=== PATIENT | female | born 1980 | race Caucasian/White ===

== ENCOUNTER 2016-02-19 07:03 | Day surgery (SDC) | payer OTHER ==
[~2016-02-19] VITALS: Ht 172.7 cm; Wt 79.4 kg
[~2016-02-19 07:03] MED LIST: ACID REFLUX MEDS; ADVAIR; ADVAIR 100-501 EACH IH; ADVAIR 100/501 DISK IH; ALAVERT10 MG PO; ALBUTEROL17 GM IH; AMBIEN; AMBIEN5 MG PO; ANAPROX DS550 M1 PO; ANTIVERT25 MG PO; B COMPLETE1 EACH PO; BUSPIRONE HCL15 MG PO; CALCIPOTRIENE60 G1 TP; CHANTIX1 EACH PO; CLARITIN10 MG PO; CORTIZONE-10 PL57 GM TP; CREON 241 CAPSULE PO; CYCLOBENZAPRINE10 MG PO; DICLOFENAC SODI75 MG PO; DICYCLOMINE HCL20 MG PO; ESCITALOPRAM OX20 MG PO; FAMOTIDINE20 M1 NG; FAMOTIDINE40 MG PO; FISH OIL CONC1 EACH PO; FLEXERIL10 MG PO; FLONASE16 G1 BOTH NARES; FLONASE16 GM NS; GABAPENTIN300 MG PO; GRALISE300 MG PO; HYDROCODON-ACE1 EAC7 PO; HYDROXYZINE HCL10 MG PO; INDOCIN25 MG PO; KLOR-CON 1010 MEQ PO; LAMICTAL100 MG PO; LAMICTAL25 MG PO; LEXAPRO20 MG PO; LISINOPRIL5 MG PO; LOESTRIN 1/21 TABLET PO; LORATADINE10 M2 PO; MACROBID100 MG PO; MELOXICAM15 MG PO; MORPHINE SULFAT15 M1 PO; MORPHINE SULFAT15 MG PO; MORPHINE SULFAT30 M2 PO; MOTRIN600 MG PO; MOTRIN800 MG PO; Motrin PO; NAPROSYN500 MG PO; NEURONTIN400 MG PO; NORCO 7.5/321 TABLET PO; NORPLANT; PAROXETINE HCL40 MG PO; PAXIL; PAXIL40 MG PO; PEPCID40 MG PO; PERCOCET 5/31 TABLET PO; POTASSIUM CHLO10 ME3 PO; PREDNISONE20 MG PO; PREDNISONE50 MG PO; PRENATAL1 EACH PO; PROAIR HFA8.5 GM IH; RANITIDINE HCL300 M1 PO; SANCTURA20 MG PO; SIMVASTATIN20 M1 PO; STRATTERA; STRATTERA40 MG PO; TOPAMAX25 MG PO; TOPIRAMATE25 MG PO; TRAZODONE HCL50 MG PO; TROSPIUM CHLORI20 MG PO; ULTRAM50 MG PO; VITAMIN D-32000 UNI2 PO; VITAMIN D32000 UNI1 PO; VOLTAREN50 MG PO; ZOFRAN ODT4 MG PO; ZYRTEC10 M2 PO; [UNRECOGNIZED DRUG - OTHER]
[2016-02-19] MEDS ORDERED: HYDROCODON-ACE1 EAC7 PO (07:35)
== END 2016-02-19 10:47 | disposition home or self-care (01) ==
LOC: PAIN 07:03 → SDC 08:00 → PAIN 10:47
PROC: 3E0S33Z Introduction of Anti-inflammatory into Epidural Space, Percutaneous Approach (ICD-10-PCS; principal; 2016-02-19)
DX: M54.16 Radiculopathy, lumbar region (principal); M47.896 Other spondylosis, lumbar region; M51.36 Other intervertebral disc degeneration, lumbar region; I10 Essential (primary) hypertension; F41.1 Generalized anxiety disorder; E78.5 Hyperlipidemia, unspecified; J45.909 Unspecified asthma, uncomplicated; K21.9 Gastro-esophageal reflux disease without esophagitis
CPT/HCPCS: J1030; J2250; J3010

== ENCOUNTER 2016-03-18 07:24 | Day surgery (SDC) | payer OTHER | END 2016-03-18 09:10 | disposition home or self-care (01) | LOC: PAIN 07:24 → SDC 07:45 → PAIN 09:10 | PROC: 3E0S33Z Introduction of Anti-inflammatory into Epidural Space, Percutaneous Approach (ICD-10-PCS; principal; 2016-03-18) | DX: M54.16 Radiculopathy, lumbar region (principal); M47.896 Other spondylosis, lumbar region; M51.36 Other intervertebral disc degeneration, lumbar region; F41.1 Generalized anxiety disorder; I10 Essential (primary) hypertension; E78.5 Hyperlipidemia, unspecified; F90.9 Attention-deficit hyperactivity disorder, unspecified type; K76.0 Fatty (change of) liver, not elsewhere classified | CPT/HCPCS: J1030; J2250; J3010 ==

== ENCOUNTER → 2016-05-26 | Outpatient (CLI) | payer OTHER | END | disposition home or self-care (01) | LOC: CDC 09:56 | DX: I49.9 Cardiac arrhythmia, unspecified (principal); R94.31 Abnormal electrocardiogram [ECG] [EKG]; M54.9 Dorsalgia, unspecified | CPT/HCPCS: 93000 ==

== ENCOUNTER 2016-06-01 09:45 | Day surgery (SDC) | payer OTHER ==
[~2016-06-01] VITALS: Ht 172.7 cm; Wt 79.4 kg
[2016-06-01 10:31] VITALS: BP 126/75
[2016-06-01 15:48] VITALS: BP 149/70
== END 2016-06-02 16:45 | disposition home or self-care (01) ==
LOC: SDC 09:45 → 2SOUTH 13:55
DX: M51.16 Intervertebral disc disorders with radiculopathy, lumbar region (principal); I10 Essential (primary) hypertension; F41.9 Anxiety disorder, unspecified; G47.30 Sleep apnea, unspecified; K21.9 Gastro-esophageal reflux disease without esophagitis; I49.9 Cardiac arrhythmia, unspecified; Z87.828 Personal history of other (healed) physical injury and trauma; F17.210 Nicotine dependence, cigarettes, uncomplicated
CPT/HCPCS: 72020; 76000; G0378; J0330; J0690; J1100; J1170; J1885; J2250; J2405; J2710; J3010

== ENCOUNTER 2016-06-03 13:44 | Emergency (ER) | payer OTHER ==
[~2016-06-03] VITALS: Ht 172.7 cm; Wt 75.0 kg
[2016-06-03 14:37] LABS: HEMATOCRIT 38.7 % (36.0-46.0); MCH 30.3 PG (29.0-34.0); MCHC 33.9 G/DL (30.0-36.0); MCV 89.6 FL (83-99); PLATELET COUNT 205 K/uL (156-360); RBC DIS.WIDTH-CV 12.9 % (11.8-14.6); RBC DIS.WIDTH-SD 42.6 % (39-53); RED BLOOD COUNT 4.32 M/uL (3.80-5.20); WHITE BLOOD COUNT 10.6 K/uL (4.1-10.2)
[2016-06-03 14:43] LABS: CHLORIDE 108 mEq/L (99-109); POTASSIUM 3.1 mEq/L (3.7-5.4); SODIUM 141 mEq/L (136-147)
[2016-06-03 14:44] LABS: GLUCOSE 85 mg/dL (70-99)
[2016-06-03 14:46] LABS: ANION GAP 11 MEQ/L (2-14)
[2016-06-03 14:48] LABS: GFR ESTIMATE (CALCULATED) > 59 mL/min/
[2016-06-03 14:49] LABS: UREA NITROGEN (BUN) 7 mg/dL (9-23)
[2016-06-03 15:20] LABS: ADD MIUA? NO; BILIRUBIN NEGATIVE; BLOOD NEGATIVE; COLOR COLORLESS ((YELLOW)); GLUCOSE (STRIP) NEGATIVE; KETONES NEGATIVE; LEUKOCYTES NEGATIVE; NITRITE NEGATIVE; PROTEIN (STRIP) NEGATIVE; SPECIFIC GRAVITY 1.002 (1.000-1.030); UCUL ADDED? NO; UROBILINOGEN 0.2 MG/DL (0.2-1.0)
[2016-06-03 17:05] VITALS: BP 110/54
== END 2016-06-03 17:10 | disposition home or self-care (01) ==
LOC: EME 13:44
PROVIDERS: Emergency Medicine
DX: S30.0XXA Contusion of lower back and pelvis, initial encounter (principal); E87.6 Hypokalemia; D72.829 Elevated white blood cell count, unspecified; W50.1XXA Accidental kick by another person, initial encounter; Z98.890 Other specified postprocedural states; E78.5 Hyperlipidemia, unspecified; K21.9 Gastro-esophageal reflux disease without esophagitis; R56.9 Unspecified convulsions; F17.200 Nicotine dependence, unspecified, uncomplicated
CPT/HCPCS: 72131; 80048; 81003; 85027; 99281; 99285; J2270; J2405

== ENCOUNTER 2016-07-28 10:59 | Emergency (ER) | payer OTHER ==
[~2016-07-28] VITALS: Ht 172.7 cm; Wt 76.6 kg
[2016-07-28 12:24] LABS: HEMATOCRIT 45.5 % (36.0-46.0); MCH 29.4 PG (29.0-34.0); MCHC 32.7 G/DL (30.0-36.0); MCV 89.9 FL (83-99); RBC DIS.WIDTH-CV 12.2 % (11.8-14.6); RBC DIS.WIDTH-SD 40.3 % (39-53); RED BLOOD COUNT 5.06 M/uL (3.80-5.20); WHITE BLOOD COUNT 7.2 K/uL (4.1-10.2)
[2016-07-28 12:35] LABS: CHLORIDE 107 mEq/L (99-109); POTASSIUM 3.4 mEq/L (3.7-5.4); SODIUM 143 mEq/L (136-147)
[2016-07-28 12:37] LABS: GLUCOSE 78 mg/dL (70-99)
[2016-07-28 12:38] LABS: ANION GAP 10 MEQ/L (2-14)
[2016-07-28 12:39] LABS: TOTAL BILIRUBIN 0.4 mg/dL (0.0-1.0)
[2016-07-28 12:40] LABS: ALKALINE PHOSPHATASE 61 IU/L (3-129)
[2016-07-28 12:41] LABS: GFR ESTIMATE (CALCULATED) > 59 mL/min/
[2016-07-28 12:42] LABS: UREA NITROGEN (BUN) 4 mg/dL (9-23)
[2016-07-28 12:49] LABS: QUANTITATIVE HCG < 4.0 MIU/ML
[2016-07-28 13:14] LABS: ADD MIUA? YES; BILIRUBIN NEGATIVE; BLOOD NEGATIVE; COLOR STRAW ((YELLOW)); GLUCOSE (STRIP) NEGATIVE; KETONES NEGATIVE; LEUKOCYTES NEGATIVE; NITRITE NEGATIVE; PROTEIN (STRIP) NEGATIVE; SPECIFIC GRAVITY 1.003 (1.000-1.030); UROBILINOGEN 0.2 MG/DL (0.2-1.0)
[2016-07-28 13:18] LABS: BACTERIA RARE /HPF; EPITHELIAL CELLS 4+ /HPF; MUCUS TRACE /LPF; RED BLOOD CELLS 0-5 /HPF (0-5); UCUL ADDED? NO; WHITE BLOOD CELLS 0-5 /HPF (0-5)
[2016-07-28 13:21] LABS: MEAN PLAT.VOLUME 11.5 uM^3 (9.5-12.4); PLATELET COUNT 208 K/uL (156-360)
[2016-07-28 13:30] LABS: LIPASE 7 U/L (1.0-51.0)
[2016-07-28 15:55] VITALS: BP 125/71
== END 2016-07-28 15:57 | disposition home or self-care (01) ==
LOC: EME 10:59
DX: R10.9 Unspecified abdominal pain (principal); R19.7 Diarrhea, unspecified; Z90.49 Acquired absence of other specified parts of digestive tract; I10 Essential (primary) hypertension; F17.200 Nicotine dependence, unspecified, uncomplicated
CPT/HCPCS: 74177; 80053; 81003; 83690; 84702; 85027; 99281; 99284; J1885; J7030

== ENCOUNTER 2016-09-26 03:09 | Emergency (ER) | payer OTHER ==
[~2016-09-26] VITALS: Ht 172.7 cm; Wt 81.0 kg
[2016-09-26 03:16] VITALS: BP 129/87
== END 2016-09-26 04:22 | disposition home or self-care (01) ==
LOC: EME 03:09
DX: S93.401A Sprain of unspecified ligament of right ankle, initial encounter (principal); W18.30XA Fall on same level, unspecified, initial encounter; Z88.2 Allergy status to sulfonamides
CPT/HCPCS: 73610; 99281; 99282

== ENCOUNTER 2016-10-09 02:26 | Emergency (ER) | payer OTHER ==
[~2016-10-09] VITALS: Ht 167.6 cm; Wt 76.6 kg
[2016-10-09 03:07] LABS: EOSINOPHIL (%) 2.7 % (0-5); EOSINOPHIL COUNT 0.3 K/uL (0-0.3); IMMATURE GRANULOCYTE (%) 0.3 % (0.0-0.7); INSTRUMENT ABS NEUTROPHIL CT 6.1 K/uL; LYMPHOCYTE COUNT 3.4 K/uL (1.0-2.8); MCH 29.4 PG (29.0-34.0); MCHC 33.4 G/DL (30.0-36.0); MEAN PLAT.VOLUME 11.3 uM^3 (9.5-12.4); MONOCYTE (%) 8.2 % (3-12); MONOCYTE COUNT 0.9 K/uL (0-0.8); NEUTROPHIL (%) 56.8 % (45-76); NEUTROPHIL COUNT 6.1 K/uL (1.8-6.4); PLATELET COUNT 250 K/uL (156-360); RBC DIS.WIDTH-CV 13.1 % (11.8-14.6); RBC DIS.WIDTH-SD 42.4 % (39-53); RED BLOOD COUNT 4.66 M/uL (3.80-5.20); WHITE BLOOD COUNT 10.7 K/uL (4.1-10.2)
[2016-10-09 03:17] LABS: CHLORIDE 107 mEq/L (99-109); POTASSIUM 3.2 mEq/L (3.7-5.4); SODIUM 139 mEq/L (136-147)
[2016-10-09 03:19] LABS: GLUCOSE 96 mg/dL (70-99)
[2016-10-09 03:20] LABS: ANION GAP 13 MEQ/L (2-14)
[2016-10-09 03:22] LABS: SERUM ETHYL ALCOHOL 83 mg/dL
[2016-10-09 03:23] LABS: GFR ESTIMATE (CALCULATED) > 59 mL/min/
[2016-10-09 03:24] LABS: UREA NITROGEN (BUN) 4 mg/dL (9-23)
[2016-10-09 03:31] LABS: QUANTITATIVE HCG < 4.0 MIU/ML
[2016-10-09 09:39] VITALS: BP 110/58
== END 2016-10-09 10:18 | disposition home or self-care (01) ==
LOC: EME → EDBD 02:26 → EME 02:26
PROVIDERS: Emergency Medicine
DX: F10.129 Alcohol abuse with intoxication, unspecified (principal); F32.9 Major depressive disorder, single episode, unspecified; S40.212A Abrasion of left shoulder, initial encounter; S40.211A Abrasion of right shoulder, initial encounter; X78.8XXA Intentional self-harm by other sharp object, initial encounter; F43.10 Post-traumatic stress disorder, unspecified; F60.3 Borderline personality disorder; R41.83 Borderline intellectual functioning; Z86.73 Personal history of transient ischemic attack (TIA), and cerebral infarction without residual deficits; K21.9 Gastro-esophageal reflux disease without esophagitis; E78.5 Hyperlipidemia, unspecified; F17.200 Nicotine dependence, unspecified, uncomplicated; Z78.1 Physical restraint status
CPT/HCPCS: 80048; 84702; 85025; 90837; 99281; 99284; G0480; J1630; J2250

== ENCOUNTER 2016-11-20 20:24 | Emergency (ER) | payer OTHER ==
[~2016-11-20] VITALS: Ht 172.7 cm; Wt 75.0 kg
[2016-11-20] MEDS ORDERED: MEDROL DOSEPAK4 MG PO (22:17)
[2016-11-20] MEDS ORDERED: NAPROSYN500 MG PO (22:17)
[2016-11-20] MEDS ORDERED: FLEXERIL10 MG PO (22:17)
[2016-11-20 22:27] VITALS: BP 135/68
[2016-11-21] MEDS ORDERED: ULTRAM50 MG PO (21:31)
== END 2016-11-20 22:27 | disposition home or self-care (01) ==
LOC: RME 20:24 → EME 20:24 → RME 22:27
DX: M54.5 Low back pain (principal); M25.532 Pain in left wrist; W18.2XXA Fall in (into) shower or empty bathtub, initial encounter; Y93.E1 Activity, personal bathing and showering; Y92.002 Bathroom of unspecified non-institutional (private) residence as the place of occurrence of the external cause; M51.36 Other intervertebral disc degeneration, lumbar region; I10 Essential (primary) hypertension; F17.200 Nicotine dependence, unspecified, uncomplicated
CPT/HCPCS: 72100; 73110; 99281; 99283; J1100

== ENCOUNTER 2016-11-21 20:55 | Emergency (ER) | payer OTHER ==
[~2016-11-21] VITALS: Ht 172.7 cm; Wt 76.7 kg
[~2016-11-21 20:55] MED LIST changes: +MEDROL DOSEPAK4 MG PO
[2016-11-21] MEDS ORDERED: ULTRAM50 MG PO (21:31)
[2016-11-21 21:51] VITALS: BP 135/81
== END 2016-11-21 21:52 | disposition home or self-care (01) ==
LOC: EME 20:55
DX: M54.9 Dorsalgia, unspecified (principal); M54.30 Sciatica, unspecified side; K21.9 Gastro-esophageal reflux disease without esophagitis; E78.5 Hyperlipidemia, unspecified; R56.9 Unspecified convulsions; G43.909 Migraine, unspecified, not intractable, without status migrainosus; Z86.73 Personal history of transient ischemic attack (TIA), and cerebral infarction without residual deficits; F17.200 Nicotine dependence, unspecified, uncomplicated
CPT/HCPCS: 99281; 99283

== ENCOUNTER 2016-12-30 22:59 | Emergency (ER) | payer OTHER ==
[~2016-12-30] VITALS: Ht 172.7 cm; Wt 75.1 kg
[2016-12-30 23:47] LABS: EOSINOPHIL (%) 2.1 % (0-5); EOSINOPHIL COUNT 0.3 K/uL (0-0.3); HEMATOCRIT 38.8 % (36.0-46.0); IMMATURE GRANULOCYTE (%) 0.3 % (0.0-0.7); INSTRUMENT ABS NEUTROPHIL CT 6.6 K/uL; LYMPHOCYTE COUNT 3.8 K/uL (1.0-2.8); MCH 29.4 PG (29.0-34.0); MCHC 33.5 G/DL (30.0-36.0); MCV 87.8 FL (83-99); MEAN PLAT.VOLUME 10.9 uM^3 (9.5-12.4); MONOCYTE (%) 7.9 % (3-12); MONOCYTE COUNT 0.9 K/uL (0-0.8); NEUTROPHIL (%) 56.8 % (45-76); NEUTROPHIL COUNT 6.6 K/uL (1.8-6.4); PLATELET COUNT 245 K/uL (156-360); RBC DIS.WIDTH-CV 12.2 % (11.8-14.6); RBC DIS.WIDTH-SD 39.6 % (39-53); RED BLOOD COUNT 4.42 M/uL (3.80-5.20); WHITE BLOOD COUNT 11.7 K/uL (4.1-10.2)
[2016-12-30 23:52] LABS: CHLORIDE 106 mEq/L (99-109); POTASSIUM 2.9 mEq/L (3.7-5.4); SODIUM 136 mEq/L (136-147)
[2016-12-30 23:54] LABS: GLUCOSE 104 mg/dL (70-99)
[2016-12-30 23:55] LABS: ANION GAP 7 MEQ/L (2-14)
[2016-12-30 23:56] LABS: TOTAL BILIRUBIN 0.3 mg/dL (0.0-1.0)
[2016-12-30 23:57] LABS: SERUM ETHYL ALCOHOL < 10 mg/dL
[2016-12-30 23:58] LABS: ALKALINE PHOSPHATASE 58 IU/L (3-129); GFR ESTIMATE (CALCULATED) > 59 mL/min/
[2016-12-31] LABS: UREA NITROGEN (BUN) 6 mg/dL (9-23)
[2016-12-31 00:01] LABS: SALICYLATE < 5.0 MG/DL (15-30)
[2016-12-31 00:08] LABS: QUANTITATIVE HCG < 4.0 MIU/ML
[2016-12-31 07:54] LABS: ADD MIUA? YES; BILIRUBIN NEGATIVE; BLOOD NEGATIVE; COLOR YELLOW ((YELLOW)); GLUCOSE (STRIP) NEGATIVE; KETONES NEGATIVE; LEUKOCYTES MODERATE; NITRITE NEGATIVE; PROTEIN (STRIP) 30; SPECIFIC GRAVITY 1.012 (1.000-1.030); UROBILINOGEN 0.2 MG/DL (0.2-1.0)
[2016-12-31 08:02] LABS: BACTERIA 1+ /HPF; EPITHELIAL CELLS 4+ /HPF; MUCUS 3+ /LPF; RED BLOOD CELLS 15-20 /HPF (0-5); UCUL ADDED? YES; WHITE BLOOD CELLS 20-30 /HPF (0-5)
[2016-12-31 08:13] LABS: ADD MEDTOX COMMENT Y; AMPHETAMINE NEGATIVE (500 ng/mL); BARBITURATES NEGATIVE (200 ng/mL); BENZODIAZEPINES NEGATIVE (150 ng/mL); COCAINE NEGATIVE (150 ng/mL); INTERNAL CONTROLS VALID? YES; METHADONE NEGATIVE (200 ng/mL); METHAMPHETAMINE NEGATIVE (500 ng/mL); OPIATES (MORPHINE) NEGATIVE (100 ng/mL); OXYCODONE NEGATIVE (100 ng/mL); PHENCYCLIDINE NEGATIVE (25 ng/mL); PROPOXYPHENE NEGATIVE (300 ng/mL); THC CANNABINOIDS PRESUMPTIVE POSITIVE (50 ng/mL); TRICYCLIC ANTIDEPRESSANTS NEGATIVE (300 ng/mL)
[2016-12-31 08:31] VITALS: BP 132/68
== END 2016-12-31 08:27 | disposition home or self-care (01) ==
LOC: EME 22:59
PROVIDERS: Emergency Medicine
DX: F32.9 Major depressive disorder, single episode, unspecified (principal); S40.212A Abrasion of left shoulder, initial encounter; S40.211A Abrasion of right shoulder, initial encounter; E87.6 Hypokalemia; F43.10 Post-traumatic stress disorder, unspecified; X78.8XXA Intentional self-harm by other sharp object, initial encounter; Z04.6 Encounter for general psychiatric examination, requested by authority; T43.506A Underdosing of unspecified antipsychotics and neuroleptics, initial encounter; Z91.14 Patient's other noncompliance with medication regimen; E78.5 Hyperlipidemia, unspecified; R56.9 Unspecified convulsions; K21.9 Gastro-esophageal reflux disease without esophagitis; Z86.73 Personal history of transient ischemic attack (TIA), and cerebral infarction without residual deficits; F17.200 Nicotine dependence, unspecified, uncomplicated
CPT/HCPCS: 80053; 81003; 84702; 84999; 85025; 87086; 90837; 99281; 99284; G0480; J1630; J2250

== ENCOUNTER 2017-01-19 19:02 | Emergency (ER) | payer OTHER ==
[~2017-01-19] VITALS: Ht 172.7 cm; Wt 77.5 kg
[2017-01-19 20:32] LABS: EOSINOPHIL (%) 3.3 % (0-5); EOSINOPHIL COUNT 0.4 K/uL (0-0.3); HEMATOCRIT 38.5 % (36.0-46.0); IMMATURE GRANULOCYTE (%) 0.3 % (0.0-0.7); INSTRUMENT ABS NEUTROPHIL CT 6.5 K/uL; LYMPHOCYTE COUNT 3.4 K/uL (1.0-2.8); MCH 29.9 PG (29.0-34.0); MCV 87.9 FL (83-99); MEAN PLAT.VOLUME 11.3 uM^3 (9.5-12.4); MONOCYTE (%) 6.9 % (3-12); MONOCYTE COUNT 0.8 K/uL (0-0.8); NEUTROPHIL (%) 58.2 % (45-76); NEUTROPHIL COUNT 6.5 K/uL (1.8-6.4); PLATELET COUNT 219 K/uL (156-360); RBC DIS.WIDTH-CV 12.8 % (11.8-14.6); RBC DIS.WIDTH-SD 41.1 % (39-53); RED BLOOD COUNT 4.38 M/uL (3.80-5.20); WHITE BLOOD COUNT 11.1 K/uL (4.1-10.2)
[2017-01-19 20:43] LABS: D-DIMER ELISA < 150.00 ng/mLDDU (<230)
[2017-01-19 20:44] LABS: CHLORIDE 107 mEq/L (99-109); POTASSIUM 3.2 mEq/L (3.7-5.4); SODIUM 139 mEq/L (136-147)
[2017-01-19 20:46] LABS: GLUCOSE 92 mg/dL (70-99)
[2017-01-19 20:47] LABS: ANION GAP 8 MEQ/L (2-14)
[2017-01-19 20:48] LABS: TOTAL BILIRUBIN 0.3 mg/dL (0.0-1.0)
[2017-01-19 20:50] LABS: ALKALINE PHOSPHATASE 56 IU/L (3-129); GFR ESTIMATE (CALCULATED) > 59 mL/min/
[2017-01-19 20:51] LABS: UREA NITROGEN (BUN) 4 mg/dL (9-23)
[2017-01-19 20:53] LABS: TROP-I INTERPRETATION NEGATIVE; TROPONIN-I < 0.01 ng/mL (0.0-0.30)
[2017-01-19 20:59] LABS: QUANTITATIVE HCG < 4.0 MIU/ML
[2017-01-19 22:00] VITALS: BP 120/76
== END 2017-01-19 22:00 | disposition home or self-care (01) ==
LOC: EME 19:02
PROVIDERS: Emergency Medicine
DX: R07.9 Chest pain, unspecified (principal); M54.9 Dorsalgia, unspecified; R05 Cough; Z90.49 Acquired absence of other specified parts of digestive tract; Z85.3 Personal history of malignant neoplasm of breast; F17.200 Nicotine dependence, unspecified, uncomplicated
CPT/HCPCS: 71020; 80053; 84484; 84702; 85025; 85379; 93005; 99281; 99284

== ENCOUNTER 2017-03-17 22:56 | Inpatient (IN) | payer OTHER ==
[~2017-03-17] VITALS: Ht 165.1 cm; Wt 79.4 kg
[2017-03-17 23:41] LABS: HEMATOCRIT 44.9 % (36.0-46.0); HEMOGLOBIN 15.1 G/DL (11.9-15.5); MCH 30.3 PG (29.0-34.0); MCHC 33.6 G/DL (30.0-36.0); MCV 90.2 FL (83-99); PLATELET COUNT 306 K/uL (156-360); RBC DIS.WIDTH-CV 12.8 % (11.8-14.6); RBC DIS.WIDTH-SD 42.3 % (39-53); RED BLOOD COUNT 4.98 M/uL (3.80-5.20); WHITE BLOOD COUNT 20.3 K/uL (4.1-10.2)
[2017-03-17 23:56] LABS: CHLORIDE 102 mEq/L (99-109); POTASSIUM 3.8 mEq/L (3.7-5.4); SODIUM 140 mEq/L (136-147)
[2017-03-17 23:58] LABS: GLUCOSE 105 mg/dL (70-99)
[2017-03-18 00:01] LABS: SERUM ETHYL ALCOHOL < 10 mg/dL
[2017-03-18 00:02] LABS: CREATININE 0.8 mg/dL (0.6-1.3); GFR ESTIMATE (CALCULATED) > 59 mL/min/
[2017-03-18 00:03] LABS: UREA NITROGEN (BUN) 3 mg/dL (9-23)
[2017-03-18 00:10] LABS: QUANTITATIVE HCG < 4.0 MIU/ML
[2017-03-18 05:06] VITALS: BP 130/86
[2017-03-18 07:32] VITALS: BP 108/70
[2017-03-18 15:31] VITALS: BP 116/61
[2017-03-19 07:29] VITALS: BP 94/51
[2017-03-19 08:32] VITALS: BP 115/57
[2017-03-19 08:49] VITALS: BP 115/57
[2017-03-19] MEDS ORDERED: VENTOLIN HFA18 GM IH (09:36)
[2017-03-19] MEDS ORDERED: ENALAPRIL MALEAT5 MG PO (09:36)
[2017-03-19] MEDS ORDERED: ADVAIR HFA120 INHALA IH (09:37)
[2017-03-19] MEDS ORDERED: HYDROCHLOROTH12.5 M3 PO (09:37)
[2017-03-19] MEDS ORDERED: BUPROPION XL150 MG PO (09:37)
[2017-03-19] MEDS ORDERED: TRAZODONE HCL50 MG PO (09:37)
[2017-03-19] MEDS ORDERED: DIVALPROEX SOD250 M1 PO (09:37)
== END 2017-03-19 12:36 | disposition home or self-care (01) | DRG 881 ==
LOC: EME 22:56 → 1WEST 03-18 04:20 → EDOF 03-18 04:20 → ENRESERV 03-18 04:40 → 1WEST 03-18 04:58
PROVIDERS: Emergency Medicine
DX: F32.9 Major depressive disorder, single episode, unspecified (principal); D72.829 Elevated white blood cell count, unspecified; F17.200 Nicotine dependence, unspecified, uncomplicated; E78.5 Hyperlipidemia, unspecified; F43.10 Post-traumatic stress disorder, unspecified; K21.9 Gastro-esophageal reflux disease without esophagitis; Z91.5 Personal history of self-harm; F60.3 Borderline personality disorder
CPT/HCPCS: 71045; 80048; 81003; 84702; 85027; 90837; 94640; 94640 76; 99281; 99285; G0480; J1630; J2060

== ENCOUNTER 2017-06-29 16:35 | Emergency (ER) | payer OTHER ==
[~2017-06-29] VITALS: Ht 172.7 cm; Wt 76.3 kg
[~2017-06-29 16:35] MED LIST changes: +ADVAIR HFA120 INHALA IH; +BUPROPION XL150 MG PO; +DIVALPROEX SOD250 M1 PO; +ENALAPRIL MALEAT5 MG PO; +HYDROCHLOROTH12.5 M3 PO; +VENTOLIN HFA18 GM IH
[2017-06-29] MEDS ORDERED: FLEXERIL10 MG PO (19:24)
[2017-06-29] MEDS ORDERED: MOTRIN600 MG PO (19:24)
[2017-06-29 19:48] VITALS: BP 106/61
== END 2017-06-29 19:48 | disposition home or self-care (01) ==
LOC: EME 16:35
DX: M54.5 Low back pain (principal); Z88.2 Allergy status to sulfonamides; F17.200 Nicotine dependence, unspecified, uncomplicated
CPT/HCPCS: 72100; 99281; 99284; J1885

== ENCOUNTER 2017-06-30 20:44 | Emergency (ER) | payer OTHER ==
[~2017-06-30] VITALS: Ht 172.7 cm; Wt 170.1 kg
[2017-06-30 21:42] VITALS: BP 133/68
== END 2017-06-30 21:49 | disposition home or self-care (01) ==
LOC: EME 20:44
DX: R42 Dizziness and giddiness (principal); T48.1X5A Adverse effect of skeletal muscle relaxants [neuromuscular blocking agents], initial encounter; E78.5 Hyperlipidemia, unspecified; F32.9 Major depressive disorder, single episode, unspecified; I10 Essential (primary) hypertension; K21.9 Gastro-esophageal reflux disease without esophagitis; F41.9 Anxiety disorder, unspecified; Z86.73 Personal history of transient ischemic attack (TIA), and cerebral infarction without residual deficits; Z88.2 Allergy status to sulfonamides; F17.200 Nicotine dependence, unspecified, uncomplicated
CPT/HCPCS: 93005; 99281; 99284

== ENCOUNTER 2017-08-13 13:25 | Emergency (ER) | payer OTHER ==
[~2017-08-13] VITALS: Ht 172.7 cm; Wt 76.4 kg
[2017-08-13] MEDS ORDERED: MOTRIN600 MG PO (17:07)
[2017-08-13] MEDS ORDERED: FLEXERIL10 MG PO (17:07)
[2017-08-13 17:22] VITALS: BP 142/80
== END 2017-08-13 17:23 | disposition home or self-care (01) ==
LOC: EME 13:25
DX: M79.1 Myalgia (principal); M79.651 Pain in right thigh; M79.652 Pain in left thigh; R20.8 Other disturbances of skin sensation; M79.89 Other specified soft tissue disorders; I10 Essential (primary) hypertension; E78.5 Hyperlipidemia, unspecified; Z86.73 Personal history of transient ischemic attack (TIA), and cerebral infarction without residual deficits; F17.200 Nicotine dependence, unspecified, uncomplicated
CPT/HCPCS: 99281; 99284; J1885